=== PATIENT | female | born 1975 | race Hispanic/Latino ===

== ENCOUNTER 2018-11-26 20:37 | Emergency (ER) | payer MEDICAID, OTHER ==
--- NOTE | 2018-11-26 21:18 | Event Note ---
ED Screening Note Date of service: 11/26/18 Time: 21:16 ED Screening Note: 42 y o female presents with left sided jaw swelling and pain x 1 month This initial assessment/diagnostic orders/clinical plan/treatment(s) is/are subject to change based on patients health status, clinical progression and re- assessment by fellow clinical providers in the ED. Further treatment and workup at subsequent clinical providers discretion. Patient/guardian urged not to elope from the ED as their condition may be serious if not clinically assessed and managed. Initial orders include: ACC eval CT?
[2018-11-26] MEDS ORDERED: oxyCODONE /ACETAMINOPHEN 5-325MG TAB PO ONE (23:03)
--- NOTE | 2018-11-26 23:07 | Emergency Department Report ---
ED ENT HPI - General Chief complaint: Dental/Oral Stated complaint: TOOTHACHE/PAINFUL SWOLLEN LFT JAW/LEGS Time Seen by Provider: 11/26/18 21:16 Source: patient Mode of arrival: Ambulatory Limitations: No Limitations - History of Present Illness Initial comments: pt is a 42 yo female who presents to the ED with c/o left lower dental pain that began a week ago but worsened today. pt has associated left sided facial edema. pt states that she saw a dentist today and was advised that she had a dental abscess and was given prescription for augmentin and tylenol with codeine. the patient states the dentist advised her to follow up with an oral surgeon and was given a referral. pt denies any fever, vomiting, or difficulty tolerating secretions. PMHx of heart murmur, asthma, neuropathy. she states she has allergies to singulair, levaquin, compazine, and trovan. pt is a smoker. - Related Data Home Medications Medication Instructions Recorded Confirmed Last Taken Amoxicillin [Amoxicillin TAB] 875 mg PO BID 12/01/13 12/01/13 Unknown Gabapentin [Neurontin] 300 mg PO Q8H 12/01/13 12/01/13 Unknown Ranitidine HCl [Ranitidine] 150 mg PO DAILY 12/01/13 12/01/13 Unknown Previous Rx's Medication Instructions Recorded Last Taken Type Clindamycin [Clindamycin CAP] 300 mg PO Q6H #30 capsule 12/01/13 Unknown Rx Naproxen [Naprosyn TAB] 500 mg PO BID PRN #30 tablet 12/01/13 Unknown Rx traMADol [Ultram 50 MG tab] 50 - 100 mg PO Q8HR PRN #30 tablet 12/01/13 Unknown Rx ALPRAZolam [Xanax TAB] 0.5 mg PO BID PRN #7 tab 02/18/14 Unknown Rx Benzonatate [Tessalon Perles] 100 mg PO Q8HR #30 capsule 02/18/14 Unknown Rx Ondansetron [Zofran Odt] 4 mg PO Q6H #7 tab.rapdis 02/18/14 Unknown Rx Prednisone [Prednisone 5 mg (6-Day 5 mg PO .TAPER #1 tab.ds.pk 02/18/14 Unknown Rx Pack, 21 Tabs)] guaiFENesin/CODEINE [Robitussin AC] 5 ml PO TID #60 ml 02/18/14 Unknown Rx Clindamycin [Clindamycin CAP] 450 mg PO TID 7 Days #63 capsule 11/26/18 Unknown Rx Allergies Allergy/AdvReac Type Severity Reaction Status Date / Time levofloxacin [From Levaquin] AdvReac Swelling Verified 06/01/13 18:17 montelukast sodium AdvReac Angioedema Verified 11/30/13 22:07 [From Singulair] prochlorperazine edisylate AdvReac Vomiting Verified 06/22/13 23:08 [From Compazine] prochlorperazine maleate AdvReac Vomiting Verified 06/22/13 23:08 [From Compazine] trovafloxacin [From Trovan] AdvReac Vomiting Verified 11/26/18 20:48 ED Dental HPI - General Chief complaint: Dental/Oral Stated complaint: TOOTHACHE/PAINFUL SWOLLEN LFT JAW/LEGS Time Seen by Provider: 11/26/18 21:16 Source: patient Mode of arrival: Ambulatory Limitations: No Limitations - Related Data Home Medications Medication Instructions Recorded Confirmed Last Taken Amoxicillin [Amoxicillin TAB] 875 mg PO BID 12/01/13 12/01/13 Unknown Gabapentin [Neurontin] 300 mg PO Q8H 12/01/13 12/01/13 Unknown Ranitidine HCl [Ranitidine] 150 mg PO DAILY 12/01/13 12/01/13 Unknown Previous Rx's Medication Instructions Recorded Last Taken Type Clindamycin [Clindamycin CAP] 300 mg PO Q6H #30 capsule 12/01/13 Unknown Rx Naproxen [Naprosyn TAB] 500 mg PO BID PRN #30 tablet 12/01/13 Unknown Rx traMADol [Ultram 50 MG tab] 50 - 100 mg PO Q8HR PRN #30 tablet 12/01/13 Unknown Rx ALPRAZolam [Xanax TAB] 0.5 mg PO BID PRN #7 tab 02/18/14 Unknown Rx Benzonatate [Tessalon Perles] 100 mg PO Q8HR #30 capsule 02/18/14 Unknown Rx Ondansetron [Zofran Odt] 4 mg PO Q6H #7 tab.rapdis 02/18/14 Unknown Rx Prednisone [Prednisone 5 mg (6-Day 5 mg PO .TAPER #1 tab.ds.pk 02/18/14 Unknown Rx Pack, 21 Tabs)] guaiFENesin/CODEINE [Robitussin AC] 5 ml PO TID #60 ml 02/18/14 Unknown Rx Clindamycin [Clindamycin CAP] 450 mg PO TID 7 Days #63 capsule 11/26/18 Unknown Rx Allergies Allergy/AdvReac Type Severity Reaction Status Date / Time levofloxacin [From Levaquin] AdvReac Swelling Verified 06/01/13 18:17 montelukast sodium AdvReac Angioedema Verified 11/30/13 22:07 [From Singulair] prochlorperazine edisylate AdvReac Vomiting Verified 06/22/13 23:08 [From Compazine] prochlorperazine maleate AdvReac Vomiting Verified 06/22/13 23:08 [From Compazine] trovafloxacin [From Trovan] AdvReac Vomiting Verified 11/26/18 20:48 ED Review of Systems ROS: Stated complaint: TOOTHACHE/PAINFUL SWOLLEN LFT JAW/LEGS Other details as noted in HPI Comment: All other systems reviewed and negative ED Past Medical Hx - Past Medical History Previous Medical History?: Yes Hx Diabetes: Yes Hx Kidney Stones: Yes Hx Asthma: Yes Additional medical history: heart murmur, fibromyalgia, endometriosis - Surgical History Hx Cholecystectomy: Yes Additional Surgical History: tubal ligation, ERCP procedures, surgery on left ear, 3 C-sections, laparoscopic surgery for endometriosis - Social History Smoking Status: Current Every Day Smoker Substance Use Type: None - Medications Home Medications: Home Medications Medication Instructions Recorded Confirmed Last Taken Type Amoxicillin [Amoxicillin TAB] 875 mg PO BID 12/01/13 12/01/13 Unknown History Clindamycin [Clindamycin CAP] 300 mg PO Q6H #30 capsule 12/01/13 Unknown Rx Gabapentin [Neurontin] 300 mg PO Q8H 12/01/13 12/01/13 Unknown History Naproxen [Naprosyn TAB] 500 mg PO BID PRN #30 tablet 12/01/13 Unknown Rx Ranitidine HCl [Ranitidine] 150 mg PO DAILY 12/01/13 12/01/13 Unknown History traMADol [Ultram 50 MG tab] 50 - 100 mg PO Q8HR PRN #30 tablet 12/01/13 Unknown Rx ALPRAZolam [Xanax TAB] 0.5 mg PO BID PRN #7 tab 02/18/14 Unknown Rx Benzonatate [Tessalon Perles] 100 mg PO Q8HR #30 capsule 02/18/14 Unknown Rx Ondansetron [Zofran Odt] 4 mg PO Q6H #7 tab.rapdis 02/18/14 Unknown Rx Prednisone [Prednisone 5 mg (6-Day 5 mg PO .TAPER #1 tab.ds.pk 02/18/14 Unknown Rx Pack, 21 Tabs)] guaiFENesin/CODEINE [Robitussin AC] 5 ml PO TID #60 ml 02/18/14 Unknown Rx Clindamycin [Clindamycin CAP] 450 mg PO TID 7 Days #63 capsule 11/26/18 Unknown Rx ED Physical Exam - General Limitations: No Limitations General appearance: alert, in no apparent distress - Head Head exam: Present: atraumatic, normocephalic - Eye Eye exam: Present: normal appearance - ENT ENT exam: Present: normal orophraynx, mucous membranes moist, other (very poor dentition, several areas of necrosis to the gum line, several cracked teeth, area of edema that is localized to the left lower jaw with edema of the left lower face, uvula is midline, no uvular edema, no deviation of the uvula) - Respiratory Respiratory exam: Present: normal lung sounds bilaterally. Absent: respiratory distress, wheezes, rales, rhonchi, stridor, chest wall tenderness, accessory muscle use, decreased breath sounds, prolonged expiratory - Cardiovascular Cardiovascular Exam: Present: regular rate, normal rhythm, systolic murmur (3/6 systolic murmur). Absent: diastolic murmur, rubs, gallop - Neurological Exam Neurological exam: Present: alert, oriented X3 - Psychiatric Psychiatric exam: Present: normal affect, normal mood - Skin Skin exam: Present: warm, dry, intact ED Course Vital Signs 11/26/18 11/26/18 11/26/18 21:15 23:19 23:20 Temperature 98.1 F 97.6 F Pulse Rate 96 H 82 Respiratory 18 18 18 Rate Blood Pressure 127/72 Blood Pressure 123/80 [Left] O2 Sat by Pulse 98 98 Oximetry ED Medical Decision Making - Medical Decision Making pt is a 42 yo female who presents to the ED with c/o left lower dental pain that began a week ago but worsened today. pt has associated left sided facial edema. pt states that she saw a dentist today and was advised that she had a dental abscess and was given prescription for augmentin and tylenol with codeine. the patient states the dentist advised her to follow up with an oral surgeon and was given a referral. pt denies any fever, vomiting, or difficulty tolerating secretions. PMHx of heart murmur, asthma, neuropathy. she states she has allergies to singulair, levaquin, compazine, and trovan. pt is a smoker. vitals are normal. on exam: very poor dentition, several areas of necrosis to the gum line, several cracked teeth, area of edema that is localized to the left lower jaw with edema of the left lower face, uvula is midline, no uvular edema, no deviation of the uvula. Examination consistent with dental abscess and facial cellulitis. Patient did not drive to the emergency department; she was given pain medication and antibiotics. pt given prescription for clindamycin. advised pt to to stop taking Augmentin and begin taking clindamycin. advised pt to please take medication as prescribed to completion. stop taking the augmentin and begin taking clindamycin. please continue to take the pain medication that you were given by your dentist as needed. please follow up with your oral surgeon in the next 2-3 days. it is very important you follow up for a permanent solution. return to the emergency room for any new or worsening symptoms. Critical care attestation.: If time is entered above; I have spent that time in minutes in the direct care of this critically ill patient, excluding procedure time. ED Disposition Clinical Impression: Dental abscess, Infected dental carries, Facial cellulitis Disposition: TO HOME OR SELFCARE Is pt being admited?: No Does the pt Need Aspirin: No Condition: Stable Instructions: Dental Abscess (ED) Additional Instructions: please take medication as prescribed to completion. stop taking the augmentin and begin taking clindamycin. please continue to take the pain medication that you were given by your dentist as needed. please follow up with your oral surgeon in the next 2-3 days. it is very important you follow up for a permanent solution. return to the emergency room for any new or worsening symptoms. Prescriptions: Clindamycin [Clindamycin CAP] 450 mg PO TID 7 Days #63 capsule Referrals: your, oral surgeon [Other] - 2-3 Days Time of Disposition: 23:09 Print Language: CITIZEN OF [place]
[2018-11-26] MEDS ORDERED: CLINDAMYCIN 150 MG CAP PO ONE (23:23)
[2018-11-27 00:08] VITALS: BP 123/80
== END 2018-11-26 23:20 | disposition home or self-care (01) ==
LOC: ED 20:37
DX: K02.9 Dental caries, unspecified (principal); K04.7 Periapical abscess without sinus; L03.211 Cellulitis of face; E11.9 Type 2 diabetes mellitus without complications; J45.909 Unspecified asthma, uncomplicated; F17.200 Nicotine dependence, unspecified, uncomplicated; Z90.49 Acquired absence of other specified parts of digestive tract; Z98.51 Tubal ligation status; Z98.890 Other specified postprocedural states; Z88.6 Allergy status to analgesic agent; Z88.1 Allergy status to other antibiotic agents
CPT/HCPCS: 99282